=== PATIENT | male | born 2000 | race Caucasian/White ===

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

== ENCOUNTER 2020-01-28 08:05 | Emergency (ER) | payer BC ==
[~2020-01-28] VITALS: Ht 193 cm; Wt 90.4 kg
--- NOTE | 2020-01-28 08:27 | NUR ---
AMBULATED TO ROOM WITH STEADY GAIT. WHILE AT WORK STARTED HAVING LLQ AND LEFT FLANK PAIN. DENIES RADIATION FROM BACK. DENIES URINARY SYMPTOMS. DENIES FEVER/CHILLS. FAMILY HX OF KIDNEY STONES. NAD NOTED. MILD DISCOMFORT NOTED.
[2020-01-28] MEDS ORDERED: SODIUM CHLORIDE 0.9% 1,000ML IV ONE (08:30)
[2020-01-28] MEDS ORDERED: ONDANSETRON 2MG/ML, 2ML IVPush ONE (08:30)
[2020-01-28] MEDS ORDERED: HYDROmorphone 2 MG/ML, 1ML IVPush PRN (08:30)
[2020-01-28] MEDS ORDERED: KETOROLAC 30 MG/1 ML IV ONE (08:30)
[2020-01-28] MEDS ORDERED: SODIUM CHLORIDE FLUSH 10ML SYR IVF ONE (08:30)
[2020-01-28 08:44] LABS: BASOPHILS # (AUTO) 0.04 x10^3/uL (0-0.1); BASOPHILS % (AUTO) 1 % (0-1); EOSINOPHILS # (AUTO) 0.11 x10^3/uL (0-0.4); EOSINOPHILS % (AUTO) 2 % (1-7); LYMPHOCYTES # (AUTO) 1.17 x10^3/uL (1-3.4); LYMPHOCYTES % (AUTO) 25 % (22-44); MD NO; MEAN CORPUSCULAR HEMOGLOBIN 29.8 pg (27.5-34.5); MEAN CORPUSCULAR HGB CONC 34.6 g/dL (33.2-36.2); MEAN CORPUSCULAR VOLUME 86.1 fL (81-97); MEAN PLATELET VOLUME 8.2 fL (7.4-10.4); MONOCYTES # (AUTO) 0.37 x10^3/uL (0.2-0.8); MONOCYTES % (AUTO) 8 % (2-9); NEUTROPHILS # (AUTO) 2.94 x10^3/uL (1.8-6.8); NEUTROPHILS % (AUTO) 64 % (42-75); PLATELET COUNT 211 x10^3/uL (130-400); RED BLOOD COUNT 5.31 x10^6/uL (4.38-5.82); RED CELL DISTRIBUTION WIDTH 12.4 % (9.4-14.8)
[2020-01-28] MEDS ORDERED: ONDANSETRON 2MG/ML, 2ML ONE (08:52)
[2020-01-28] MEDS ORDERED: KETOROLAC 30 MG/1 ML ONE (08:52)
[2020-01-28 08:55] LABS: ALBUMIN 4.1 g/dL (3.4-5.0); ANION GAP 6 mmol/L (5-15); CALCIUM 8.6 mg/dL (8.5-10.1); CHLORIDE 107 mmol/L (98-107); CREATININE 1.06 mg/dL (0.7-1.3)
--- NOTE | 2020-01-28 09:11 | NUR ---
TASK RN NOTE: PT LAYING BACK IN BED, NAD NOTED AT THIS TIME. NO WOB NOTED. PT MEDICATED PER EMAR WITH NS INFUSING. VSS. SIDE RAILS UP, CALL LIGHT IN REACH.
--- NOTE | 2020-01-28 09:57 | NUR ---
PT CURRENTLY DENIES PAIN. UP TO RESTROOM TO ATTEMPT TO GIVE URINE SAMPLE.
--- NOTE | 2020-01-28 10:03 | NUR ---
URINE SAMPLE SENT TO LAB
--- NOTE | 2020-01-28 10:51 | NUR ---
SPOKE WITH LAB, DO NOT HAVE URINE SAMPLE. RESENT URINE SAMPLE.
[2020-01-28 11:09] LABS: MICROSCOPIC NOT IND
[2020-01-28 11:29] LABS: CULTURE INDICATED? NO
[2020-01-28 12:15] VITALS: BP 116/80
== END 2020-01-28 12:17 | disposition home or self-care (01) ==
LOC: ED 09:27
DX: N23 Unspecified renal colic (principal); R10.32 Left lower quadrant pain
CPT/HCPCS: 36415; 74176; 80048; 81003; 82040; 83690; 85025; 96374; 96375; 99284; J1885; J2405; J7030

== ENCOUNTER 2020-09-18 02:30 | Emergency (ER) | payer BC ==
[~2020-09-18] VITALS: Ht 193 cm; Wt 82.6 kg
[2020-09-18] MEDS ORDERED: PROPOFOL 10 MG/ML, 20ML IVPush ONE (03:00)
[2020-09-18] MEDS ORDERED: PROPOFOL 10 MG/ML, 20ML ONE (03:43)
[2020-09-18] MEDS ORDERED: ONDANSETRON 2MG/ML, 2ML ONE (04:11)
[2020-09-18 05:18] VITALS: BP 102/46
--- NOTE | 2020-09-18 05:18 | NUR ---
PT HAD CONSCIOUS SEDATION PREFORMED FOR DISLOCATION OF JAW 16G RT A/C, PLACED 02 2LTS NC N/S 1000ML GIVEN.C02 MAITAINED 30 TO 38 TOTAL OF 130MG DIPRIVAN GIVEN START TIME 0411 JAW IN AT 0423 PT AWAKE AND CAN MAINTAIN HIS AIRWAY AT 0435AM, VITALS WNL DURING PRECEDURE, UP FOR DC AT 0520AM
--- NOTE | 2020-09-18 05:48 | NUR ---
CONSCIOUS SEDATION PAPER WORK IN CHART.....
== END 2020-09-18 05:51 | disposition home or self-care (01) ==
LOC: ED 05:35
DX: S03.00XA Dislocation of jaw, unspecified side, initial encounter (principal); X58.XXXA Exposure to other specified factors, initial encounter; Y93.89 Activity, other specified; Y92.89 Other specified places as the place of occurrence of the external cause; Y99.8 Other external cause status
CPT/HCPCS: 21480; 99285; J2704; 99152